=== PATIENT | female | born 1990 | race Caucasian/White ===

== ENCOUNTER 2016-03-06 19:55 | Emergency (ER) | payer OTHER ==
[2016-03-06] MEDS ORDERED: predniSONE 20 MG TABLET PO STA (21:08)
[2016-03-06] MEDS ORDERED: DOXYCYCLINE 100 MG TABLET PO STA (21:08)
[2016-03-06] MEDS ORDERED: ALBUTEROL NEB 2.5 MG/3 ML INH STA (21:08)
[2016-03-06] MEDS ORDERED: DOXYCYCLINE 100 MG TABLET PO ONE (21:13)
[2016-03-06] MEDS ORDERED: predniSONE 20 MG TABLET ONE (21:13)
[2016-03-06] MEDS ORDERED: ALBUTEROL NEB 2.5 MG/3 ML INH ONE (21:16)
== END 2016-03-06 21:42 | disposition home or self-care (01) ==
DX: J45.21 Mild intermittent asthma with (acute) exacerbation (principal); J40 Bronchitis, not specified as acute or chronic
CPT/HCPCS: 94640; 99283; A9270; J7512; J7613

== ENCOUNTER 2016-07-23 21:49 | Emergency (ER) | payer OTHER ==
[2016-07-23 22:01] VITALS: BP 138/90
--- NOTE | 2016-07-23 22:12 | ED Physician Documentation ---
PD HPI HEENT - Stated complaint Stated Complaint: SORE THROAT - Chief complaint Chief Complaint: Heent - History obtained from History obtained from: Patient - History of Present Illness Timing - onset: Other ([address] without fever or rhinorrhea or cough.) Review of Systems Constitutional: reports: Myalgias. denies: Fever, Chills Nose: denies: Rhinorrhea / runny nose, Congestion Throat: reports: Sore throat Cardiac: denies: Chest pain / pressure, Palpitations Respiratory: denies: Dyspnea, Cough PD PAST MEDICAL HISTORY - Past Medical History Past Medical History: Yes Cardiovascular: None Respiratory: Asthma Neuro: Headache/migraine Endocrine/Autoimmune: None GI: None [employer] SALES: None : None HEENT: None Psych: Depression Musculoskeletal: None, Chronic back pain Derm: None - Past Surgical History Past Surgical History: Yes - Present Medications Home Medications: Ambulatory Orders Medication Instructions Recorded Confirmed Naproxen 100 mg PO PRN PRN 07/23/16 07/23/16 Nortriptyline [Pamelor] 50 mg PO DAILY 07/23/16 07/23/16 Zolmitriptan [Zomig] 5 - 10 mg PO PRN PRN 07/23/16 07/23/16 diphenhydrAMINE [Benadryl] 75 mg PO PRN PRN 07/23/16 07/23/16 - Allergies Allergies/Adverse Reactions: Allergies Allergy/AdvReac Type Severity Reaction Status Date / Time amoxicillin Allergy Itching Verified 07/23/16 21:56 Sulfa (Sulfonamide Allergy Unknown Verified 07/23/16 21:56 Antibiotics) - Social History Does the pt smoke?: No Smoking Status: Never smoker Does the pt drink ETOH?: Yes Does the pt have substance abuse?: No - Immunizations Immunizations are current?: Yes - POLST Patient has POLST: No PD ED PE NORMAL - Vitals Vital signs reviewed: Yes - General General: Alert and oriented X 3, No acute distress - HEENT HEENT: Other (B exudative tonsillitis, mild B ant cerv LAD) - Neck Neck: Supple, no meningeal sign - Derm Derm: No rash - Neuro Neuro: Alert and oriented X 3, Normal speech - Psych Psych: Normal mood, Normal affect Results - Vitals Vitals: Vital Signs - 24 hr 07/23/16 21:51 Temperature 36.7 C Heart Rate 115 H Respiratory 18 Rate Blood Pressure 138/90 H O2 Saturation 100 Oxygen O2 Source Room air - Labs Labs: Laboratory Tests 07/23/16 20:00 Group A Strep Rapid Negative Departure - Departure Disposition: 01 Home, Self Care Clinical Impression: Pharyngitis Qualifiers: Pharyngitis/tonsillitis etiology: unspecified etiology Qualified Code(s): J02.9 - Acute pharyngitis, unspecified Condition: Good Record reviewed to determine appropriate education?: Yes Instructions: ED Pharyngitis Viral Report Pending Comments: Your blood pressure was elevated today on check in to the emergency department. This does not mean that you have hypertension, it is a common phenomenon to check into the emergency department and have elevated blood pressure. I recommend that you see your primary care physician within the week to have it rechecked when you're feeling better.
[2016-07-23 22:14] LABS: RAPID STREP SCREEN REAGENT QC YELLOW (YELLOW)
== END 2016-07-23 22:32 | disposition home or self-care (01) ==
LOC: ED 21:49
DX: J02.9 Acute pharyngitis, unspecified (principal); R03.0 Elevated blood-pressure reading, without diagnosis of hypertension
CPT/HCPCS: 87070; 87430; 99283

== ENCOUNTER 2017-01-05 18:41 | Emergency (ER) | payer OTHER ==
[2017-01-05] MEDS ORDERED: predniSONE 20 MG TABLET PO STA (19:10)
--- NOTE | 2017-01-05 19:12 | ED Physician Documentation ---
PD HPI DYSPNEA - Stated complaint Stated Complaint: asthma - Chief complaint Chief Complaint: Resp - History obtained from History obtained from: Patient - History of Present Illness Timing - onset: Other (26-year-old woman with history of sports and weather change induced asthma with a couple weeks of increased work of breathing with mild intermittent cough mostly dry, only occasionally productive. There is some chest tightness with it but no fevers, no pedal edema, no possibility of . She has been using her albuterol inhaler with incomplete relief. She does not need a refill of that.) Review of Systems Constitutional: denies: Fever, Chills Nose: denies: Rhinorrhea / runny nose, Congestion Throat: denies: Sore throat Cardiac: reports: Chest pain / pressure. denies: Palpitations, Pedal edema, Calf pain Respiratory: reports: Dyspnea, Cough. 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 HEENT: None Psych: Depression Musculoskeletal: None, Chronic back pain Derm: None - Past Surgical History Past Surgical History: Yes - Present Medications Home Medications: Ambulatory Orders Medication Instructions Recorded Confirmed Nortriptyline [Pamelor] 50 mg PO DAILY 07/23/16 01/05/17 Zolmitriptan [Zomig] 5 - 10 mg PO PRN PRN 07/23/16 01/05/17 Albuterol Sulfate [Proair Hfa 01/05/17 Inhaler] Steriod Inhaler 01/05/17 predniSONE [Deltasone] 20 mg PO [id number] #21 tab 01/05/17 - Allergies Allergies/Adverse Reactions: Allergies Allergy/AdvReac Type Severity Reaction Status Date / Time amoxicillin Allergy Itching Verified 07/23/16 21:56 Sulfa (Sulfonamide Allergy Unknown Verified 07/23/16 21:56 Antibiotics) - Social History Does the pt smoke?: No Smoking Status: Never smoker Does the pt drink ETOH?: Yes Does the pt have substance abuse?: No - Immunizations Immunizations are current?: Yes - POLST Patient has POLST: No PD ED PE NORMAL - Vitals Vital signs reviewed: Yes - General General: Alert and oriented X 3, No acute distress - HEENT HEENT: Pharynx benign - Neck Neck: Supple, no meningeal sign, No bony TTP - Cardiac Cardiac: RRR, No murmur - Respiratory Respiratory: No respiratory distress, Other (Mild expiratory wheezes, good air motion) - Extremities Extremities: No edema, No calf tenderness / cord - Neuro Neuro: Alert and oriented X 3, Normal speech Results - Vitals Vitals: Vital Signs - 24 hr 01/05/17 18:47 Temperature 36.8 C Heart Rate 103 H Respiratory 17 Rate Blood Pressure 128/98 H O2 Saturation 95 Oxygen O2 Source Room air PD MEDICAL DECISION MAKING - ED course ED course: 26-year-old woman with recurrent but mild asthma exacerbation not resolved with her albuterol. She is not in extremis. We will add steroids. Departure - Departure Disposition: 01 Home, Self Care Clinical Impression: Asthma Qualifiers: Asthma severity: mild Asthma persistence: intermittent Asthma complication type : with acute exacerbation Qualified Code(s): J45.21 - Mild intermittent asthma with (acute) exacerbation Condition: Good Record reviewed to determine appropriate education?: Yes Instructions: Asthma Dc Prescriptions: predniSONE [Deltasone] 20 mg PO [id number] #21 tab Comments: Call your doctor to arrange a follow-up appointment, make the next available appointment. In the interim, return anytime if worse or if new symptoms develop. Your blood pressure was elevated today on check into the emergency department. This does not mean that you have hypertension, it is a common phenomenon to come to the emergency department and have elevated blood pressure. I recommend that you see your primary care physician within the week to have it rechecked when you are feeling better. Forms: Activity restrictions
[2017-01-05] MEDS ORDERED: predniSONE 20 MG TABLET ONE (19:20)
[2017-01-05 19:25] VITALS: BP 112/87
== END 2017-01-05 19:25 | disposition home or self-care (01) ==
LOC: ED 18:41
DX: J45.21 Mild intermittent asthma with (acute) exacerbation (principal); R03.0 Elevated blood-pressure reading, without diagnosis of hypertension
CPT/HCPCS: 99283; J7512

== ENCOUNTER 2017-07-12 14:32 | Outpatient (CLI) | payer OTHER ==
--- NOTE | 2017-07-12 22:05 | MRI Report ---
EXAM: MRI LUMBAR SPINE WITHOUT CONTRAST EXAM DATE: 07/12/2017 03:00 PM. CLINICAL HISTORY: Low back pain. COMPARISON: None. TECHNIQUE: Multiplanar, multisequence T1-weighted and fluid-sensitive sequences of the lumbar spine f rom T12 to S1 without contrast. Other: None. FINDINGS: For the purposes of this report, the last lumbar style vertebral body is designated L5. However, ther e does not appear to be ribs present on T12 and, therefore, there may be a transitional vertebral bod y present. The conus terminates at the superior endplate level of L1. The intervertebral disk spaces exhibit normal height and normal signal intensities. There is minimal fluid intensity within the superficial space of the lower back likely representing a small amount of dependent edema. There are multiple follicles demonstrated within the bilateral ovaries. There is no significant atrophy of the paraspinal musculature or the psoas musculature. The abdominal aorta is of normal caliber. L2-L3: There is no significant disk bulge, central or foraminal stenosis. The facets are normal. L3-L4: There is no significant disk bulge, central or foraminal stenosis. The facets are normal. L4-L5: There is a minimal central protrusion of the disk without significant central canal stenosis. The remainder of the level is normal. L5-S1: There is no significant disk bulge, central or foraminal stenosis. The facets are normal. IMPRESSION: 1. For the purposes of this report, L5 is designated as the last lumbar style vertebral body. However , there does not appear to be ribs present on T12 and, therefore, there may be a transitional vertebr al body present. 2. There is a minimal central protrusion of the disk without significant central canal stenosis at L4 -L5. Comment: The following findings are so common in adults without low back pain that while we report th eir presence, they must be interpreted with caution and in the context of the clinical situation. (Re francois Mora et al, Spine 2001) Prevalence of findings in patients without low back pain: Disk degeneration (any evidence): 92% Disk desiccation/T2 signal loss: 83% Disk height loss: 56% Disk bulge: 64% Disk protrusion: 32% Annular tear/high intensity zone: 38% [facility] Referring Provider Line: [phone] SITE ID: [id number]
== END 2017-07-12 14:33 | disposition home or self-care (01) ==
LOC: DI 14:32
PROVIDERS: ATTEND Family Medicine
DX: M51.26 Other intervertebral disc displacement, lumbar region (principal)
CPT/HCPCS: 72148